=== PATIENT | female | born 1975 | race Two or more races ===

== ENCOUNTER → 2023-06-09 | Emergency (ER) | payer BC ==
[~2023-06-09] VITALS: Ht 170.2 cm; Wt 59.0 kg
[~2023-06-09] MED LIST: FAMOTIDINE/PF 20 MG/2 ML VIAL IV PUSH STA; NEOMYCIN/POLYMYXIN B/HYDROCORT 20 DR/ML BOTTLE OT STA; WELLBUTRIN; XANAX1 MG PO; hydrOXYzine PAMOATE 50 MG CAPSULE PO STA
== END | disposition home or self-care (01) ==
LOC: ER 09:07
DX: F41.9 Anxiety disorder, unspecified (principal); R07.89 Other chest pain